=== PATIENT | female | born 1970 | race Caucasian/White ===

== ENCOUNTER → 2017-05-22 | Outpatient (CLI) | payer OTHER ==
--- NOTE | 2017-05-28 16:44 | REPMRS ---
Patient History The patient states she has not had a clinical breast exam in over a year. Family history of breast cancer in mother at age 58. Digital Mammo Screening Bilat: May 22, 2017 - Exam #: [id number] Bilateral CC and MLO view(s) were taken. Technologist: Riri Emerson, Technologist Prior study comparison: 2015, digital bilateral screening mammo, performed at [facility]. December 26, 2014, digital bilateral screening mammo, performed at [facility]. March 10, 2014, digital woman screen mammo, performed at [facility]. November 24, 2012, digital woman screen mammo, performed at [facility]. FINDINGS: There are scattered fibroglandular densities. There is a moderate amount of residual fibroglandular tissue which is fairly symmetric. There is no interval development of dominant mass, architectural distortion, or clustered microcalcification typical of malignancy. There has been no change in the appearance of the mammogram from the prior studies. ASSESSMENT: BI-RADS/ACR category 1 mammogram. Negative. Recommendation Routine screening mammogram of both breasts in 1 year (for women over age 40). This mammogram was interpreted with the aid of an FDA-approved computer-aided dectection system. Electronically Signed By: Greg Dumont MD 05/28/17 [id number]
== END ==
LOC: M RAD 12:43
PROVIDERS: ATTEND Physician Assistant
DX: N60.01 Solitary cyst of right breast (principal); N60.02 Solitary cyst of left breast; Z80.3 Family history of malignant neoplasm of breast

== ENCOUNTER 2018-06-29 14:47 | Observation (INO) | payer OTHER ==
[2018-06-29 15:54] LABS: BASO # 0.1 10^3/uL (0.0-0.2); BASO % 0.7 % (0.0-1.0); EOS # 0.2 10^3/uL (0.0-0.50); EOS % 1.5 % (0.0-3.0); HEMATOCRIT 40.2 % (36.0-47.0); HEMOGLOBIN 14.2 g/dl (12.0-15.5); IMMATURE GRANULOCYTE % 0.3 % (0-3.0); LYMPH % 27.9 % (24.0-44.0); MEAN CORPUSCULAR HEMOGLOBIN 29.9 pg (27.0-33.0); MEAN CORPUSCULAR HGB CONC 35.3 g/dl (32.0-36.5); MEAN CORPUSCULAR VOLUME 84.6 fl (80.0-96.0); MONO # 0.7 10^3/uL (0.0-0.8); MONO % 6.7 % (0.0-5.0); NEUTROPHILS # 6.9 10^3/uL (1.8-7.7); NEUTROPHILS % 62.9 % (36.0-66.0); PLATELET COUNT, AUTOMATED 291 10^3/uL (150-450); RED BLOOD COUNT 4.75 10^6/uL (4.00-5.40); WHITE BLOOD COUNT 10.9 10^3/uL (4.0-10.0)
[2018-06-29 16:17] LABS: ALBUMIN 4.2 GM/DL (3.2-5.2); ALBUMIN/GLOBULIN RATIO 1.31 (1.00-1.93); ALKALINE PHOSPHATASE 68 U/L (45-117); ALT/SGPT 33 U/L (12-78); ANION GAP 12 MEQ/L (8-16); AST/SGOT 26 U/L (7-37); BILIRUBIN,DIRECT < 0.1 MG/DL (0.0-0.2); BILIRUBIN,TOTAL 0.3 MG/DL (0.2-1.0); BLOOD UREA NITROGEN 13 MG/DL (7-18); CALCIUM LEVEL 9.8 MG/DL (8.5-10.1); CARBON DIOXIDE LEVEL 25 MEQ/L (21-32); CHLORIDE LEVEL 104 MEQ/L (98-107); CK-MB VALUE MASS < 1.0 NG/ML (<3.6); CPK CREATINE PHOSPHOKINASE 174 U/L (26-192); CREATININE FOR GFR 0.84 MG/DL (0.55-1.30); ETHYL ALCOHOL (ETHANOL) < 0.003 % (0.000-0.010); GLOMERULAR FILTRATION RATE > 60.0 (>58); GLUCOSE, FASTING 87 MG/DL (70-100); MB/CK RELATIVE INDEX 0.57 (< OR =4); POTASSIUM SERUM 3.9 MEQ/L (3.5-5.1); SODIUM LEVEL 141 MEQ/L (136-145); TOTAL PROTEIN 7.4 GM/DL (6.4-8.2); TROPONIN I < 0.02 NG/ML (< 0.10)
[2018-06-29 17:30] LABS: ABG BASE EXCESS -0.9 (-2.0-2.0); ABG O2 SATURATION 97.2 % (95.0-99.0); ABG PARTIAL PRESSURE CO2 31.8 mmHg (35.0-45.0); ABG PARTIAL PRESSURE O2 88.9 mmHg (75.0-100.0); ABG STANDARD HCO3 23.7 MEQ/L (22.0-26.0); ABG TOTAL CO2 22.9 MEQ/L (22.0-29.0); ABG pH (ARTERIAL) 7.457 UNITS (7.350-7.450)
[2018-06-29 17:51] LABS: CARBOXYHEMOGLOBIN 0.9 % (0.0-1.5)
[2018-06-29 18:03] LABS: AMORPHOUS SEDIMENT RFX SMALL (NEGATIVE); KETONE, URINE AUTO RFX NEGATIVE (NEGATIVE); LEUKOCYTE ESTERASE UR AUTO RFX NEGATIVE (NEGATIVE); MUCUS, URINE RFX SMALL (NEGATIVE); NITRITE, URINE AUTO RFX NEGATIVE (NEGATIVE); RBC, URINE AUTO RFX 0 /HPF (0-3); SPECIFIC GRAVITY UR AUTO RFX 1.006 (1.002-1.035); SQUAM EPITHELIAL CELL UR AURFX 0 /HPF (0-6); WBC, URINE AUTO RFX 1 /HPF (0-3)
[2018-06-29 18:14] LABS: AMPHETAMINES LEVEL URINE NEGATIVE (NEGATIVE); BARBITURATES URINE NEGATIVE (NEGATIVE); BENZODIAZEPINES URINE NEGATIVE (NEGATIVE); CANNABINOIDS URINE NEGATIVE (NEGATIVE); COCAINE METABOLITE URINE NEGATIVE (NEGATIVE); METHADONE URINE NEGATIVE (NEGATIVE); OPIATES URINE NEGATIVE (NEGATIVE); PHENCYCLIDINE URINE NEGATIVE (NEGATIVE)
[2018-06-29 18:18] LABS: AMMONIA 14 uMOL/L (<32)
[2018-06-29 18:28] LABS: LACTIC ACID SEPSIS PROTOCOL 2.3 MMOL/L (0.4-2.0)
[2018-06-29] MEDS: NS 1,000 ML IV ×3 (18:45→23:06)
[2018-06-30] MEDS: AMITRIPTYLINE 50 MG TAB PO ×2 (01:48→20:22)
[2018-06-30] MEDS: IBUPROFEN 400 MG TAB PO ×3 (03:28→19:01)
[2018-06-30 08:10] LABS: CONTROL LINE MONO INT CTR LINE PRESENT; MONO SCRN NEGATIVE (NEGATIVE)
[2018-06-30 08:14] LABS: MAGNESIUM LEVEL 2.2 MG/DL (1.8-2.4); PHOSPHORUS LEVEL 3.1 MG/DL (2.5-4.9)
[2018-06-30] MEDS: ASPIRIN 81 MG ENTERIC TAB PO (09:03)
[2018-06-30] MEDS: ENOXAPARIN 40 MG/0.4 ML SYRINGE (J1650) SC (09:03)
[2018-06-30 09:16] LABS: IMMUNOGLOBULIN E < 3.6 IU/ML (<100)
[2018-06-30 09:28] LABS: ANION GAP 13 MEQ/L (8-16); BLOOD UREA NITROGEN 9 MG/DL (7-18); CARBON DIOXIDE LEVEL 22 MEQ/L (21-32); CHLORIDE LEVEL 108 MEQ/L (98-107); CREATININE FOR GFR 0.83 MG/DL (0.55-1.30); GLOMERULAR FILTRATION RATE > 60.0 (>58); GLUCOSE, FASTING 104 MG/DL (70-100); SODIUM LEVEL 143 MEQ/L (136-145)
[2018-06-30 09:31] LABS: HEMATOCRIT 39.2 % (36.0-47.0); HEMOGLOBIN 13.7 g/dl (12.0-15.5); MEAN CORPUSCULAR HGB CONC 34.9 g/dl (32.0-36.5); MEAN CORPUSCULAR VOLUME 85.8 fl (80.0-96.0); PLATELET COUNT, AUTOMATED 307 10^3/uL (150-450); RED BLOOD COUNT 4.57 10^6/uL (4.00-5.40); WHITE BLOOD COUNT 9.7 10^3/uL (4.0-10.0)
[2018-06-30 10:18] LABS: TOTAL 25(OH) VITAMIN D 45.9 NG/ML (30.0-100.0)
[2018-07-01] MEDS: IBUPROFEN 400 MG TAB PO ×2 (04:20→15:08)
[2018-07-01 07:01] LABS: HEMATOCRIT 38.7 % (36.0-47.0); HEMOGLOBIN 13.4 g/dl (12.0-15.5); MEAN CORPUSCULAR HEMOGLOBIN 29.6 pg (27.0-33.0); MEAN CORPUSCULAR HGB CONC 34.6 g/dl (32.0-36.5); MEAN CORPUSCULAR VOLUME 85.4 fl (80.0-96.0); PLATELET COUNT, AUTOMATED 282 10^3/uL (150-450); RED BLOOD COUNT 4.53 10^6/uL (4.00-5.40); WHITE BLOOD COUNT 9.3 10^3/uL (4.0-10.0)
[2018-07-01 07:21] LABS: ANION GAP 6 MEQ/L (8-16); BLOOD UREA NITROGEN 13 MG/DL (7-18); CALCIUM LEVEL 8.6 MG/DL (8.5-10.1); CARBON DIOXIDE LEVEL 26 MEQ/L (21-32); CHLORIDE LEVEL 108 MEQ/L (98-107); CREATININE FOR GFR 0.89 MG/DL (0.55-1.30); GLOMERULAR FILTRATION RATE > 60.0 (>58); GLUCOSE, FASTING 94 MG/DL (70-100); POTASSIUM SERUM 4.2 MEQ/L (3.5-5.1); SODIUM LEVEL 140 MEQ/L (136-145)
[2018-07-01] MEDS: ENOXAPARIN 40 MG/0.4 ML SYRINGE (J1650) SC (09:15)
[2018-07-01] MEDS: ASPIRIN 81 MG ENTERIC TAB PO (09:16)
[2018-07-01 09:50] LABS: CHOLESTEROL LEVEL 250 MG/DL (<200); CHOLESTEROL RISK RATIO 5.681 (<5); HDL CHOLESTEROL 44 MG/DL (>40); LDL CHOLESTEROL 173 MG/DL (<100); NON-HDL-C 206 MG/DL; TRIGLYCERIDES LEVEL 167 MG/DL (<150)
[2018-07-01] MEDS: amLODIPine 10 MG TAB PO (12:03)
[2018-07-01 14:17] LABS: BEDSIDE GLUCOSE 91 MG/DL (70-105)
[2018-07-02 00:07] LABS: Lyme Disease IgG/IgM Antibodie <0.91 ISR (0.00-0.90); Lyme Disease IgM Ab Quantitati <0.80 index (0.00-0.79)
== END 2018-07-01 15:15 | disposition home or self-care (01) ==
LOC: M ED INP 14:48 → M PED 06-30 02:55 → M ED 14:47
DX: G45.4 Transient global amnesia (principal); G43.909 Migraine, unspecified, not intractable, without status migrainosus; E78.5 Hyperlipidemia, unspecified; I66.9 Occlusion and stenosis of unspecified cerebral artery; I10 Essential (primary) hypertension; R07.89 Other chest pain; D72.829 Elevated white blood cell count, unspecified; K57.90 Diverticulosis of intestine, part unspecified, without perforation or abscess without bleeding; G47.00 Insomnia, unspecified; Z87.09 Personal history of other diseases of the respiratory system; Z88.6 Allergy status to analgesic agent; Z88.5 Allergy status to narcotic agent; Z88.2 Allergy status to sulfonamides; Z79.899 Other long term (current) drug therapy; Z79.82 Long term (current) use of aspirin; Z79.1 Long term (current) use of non-steroidal anti-inflammatories (NSAID)
CPT/HCPCS: J1650

== ENCOUNTER → 2018-07-22 | Outpatient (CLI) | payer OTHER ==
[~2018-07-22] MED LIST: METHACHOLINE KIT (J7674) INH
== END ==
LOC: M CARPUL 07:30
DX: R06.02 Shortness of breath (principal); R07.89 Other chest pain
CPT/HCPCS: J7674

== ENCOUNTER → 2018-12-27 | Outpatient (CLI) | payer OTHER ==
[~2018-12-27] MED LIST changes: +ALEV220T26 PO; +AMIT50TA PO; +AMLO10TA5 PO; +ARTI99.0 OU; +ASPI81TAEC PO; +FISH1000 PO; +MAGN250T6 PO; -METHACHOLINE KIT (J7674) INH; +RANI1TAB6 PO; +VENTAER INH; +VITA100T56 PO; +VITA50005 PO; +VITA500T PO
== END ==
LOC: M LAB 14:17
PROVIDERS: ATTEND Physician Assistant Medical
DX: Z11.59 Encounter for screening for other viral diseases (principal)

== ENCOUNTER → 2019-02-11 | Outpatient (CLI) | payer OTHER ==
--- NOTE | 2019-02-11 09:08 | REPMRS ---
Patient History The patient states she has not had a clinical breast exam in over a year. Family history of breast cancer at age 58 in mother. [facility] for breast cancer is 16.[facility]%. Digital Woman Screen Mammo: February 11, 2019 - Exam #: [id number] Bilateral CC and MLO view(s) were taken. Technologist: Lexie Lipscomb, Technologist Prior study comparison: May 22, 2017, bilateral digital mammo screening bilat, performed at [facility]. 2016, digital bilateral screening mammo, performed at [facility]. FINDINGS: The breast tissue is heterogeneously dense. This may lower the sensitivity of mammography. There has been no change in the appearance of the mammogram from the prior studies. There is a moderate amount of residual fibroglandular tissue which is fairly symmetric. There is no interval development of dominant mass, areas of architectural distortion, or clustered microcalcification typical of malignancy. Assessment: BI-RADS/ACR category 1 mammogram. Negative Mammogram. Recommendation Routine screening mammogram in 1 year (for women over age 40). This mammogram was interpreted with the aid of an FDA-approved computer-aided dectection system. Electronically Signed By: Elijah Jean MD 02/11/19 0907
== END ==
LOC: M WHC 07:31
PROVIDERS: ATTEND Family Medicine
DX: Z12.31 Encounter for screening mammogram for malignant neoplasm of breast (principal); Z80.3 Family history of malignant neoplasm of breast

== ENCOUNTER → 2020-03-09 | Outpatient (CLI) | payer OTHER ==
[~2020-03-09] MED LIST changes: -AMLO10TA5 PO; +AMLO1TAB25 PO; -ARTI99.0 OU; +POLYOPD OU; +RANI-397 PO; -RANI1TAB6 PO; +VITA-243 PO; -VITA500T PO
--- NOTE | 2020-03-09 09:26 | REPMRS ---
Patient History The patient states she has not had a clinical breast exam in over a year. Family history of breast cancer at age 58 in mother. 3D TOMOSYNTHESIS WAS PERFORMED. The Luis Choi lifetime risk for breast cancer is 15.7%. VOLPARA DENSITY B. Digital Woman Screen Mammo: March 09, 2020 - Exam #: [id number] Bilateral CC and MLO view(s) were taken. Technologist: Apurva Ely, Technologist Prior study comparison: February 11, 2019, bilateral digital woman screen mammo performed at [facility]. May 22, 2017, bilateral digital mammo screening bilat, performed at [facility]. FINDINGS: The breast tissue is heterogeneously dense. This may lower the sensitivity of mammography. There has been no change in the appearance of the mammogram from the prior studies. There is a moderate amount of residual fibroglandular tissue which is fairly symmetric. There is no interval development of dominant mass, areas of architectural distortion, or clustered microcalcification typical of malignancy. Assessment: BI-RADS/ACR category 1 mammogram. Negative Mammogram. Recommendation Routine screening mammogram in 1 year (for women over age 40). This mammogram was interpreted with the aid of an FDA-approved computer-aided dectection system. Electronically Signed By: Elijah Jean MD 03/09/20 0949
== END ==
LOC: M WHC 07:45
PROVIDERS: ATTEND Nurse Practitioner Primary Care
DX: Z12.31 Encounter for screening mammogram for malignant neoplasm of breast (principal); Z80.3 Family history of malignant neoplasm of breast

== ENCOUNTER 2021-01-03 09:48 | Day surgery (SDC) | payer OTHER ==
[~2021-01-03] VITALS: Ht 170.2 cm; Wt 102.1 kg
[~2021-01-03 09:48] MED LIST changes: +ASPI-569 PO; -ASPI81TAEC PO; +CRES10TA PO; +D3 S20002 PO; +LOSA50TA88 PO; +NS 1,000 ML IV ONE; +VENL75CA2 PO
[2021-01-03] MEDS ORDERED: propofoL 200 MG/20 ML VIAL As Ordered ONE ×2 (11:13→11:28)
--- NOTE | 2021-01-03 11:48 | ROOR ---
Patient Name: Anne Andrews Procedure Date: 01/03/2021 11:10 AM Date of : 1970 Age: 50 Room: [facility] Gender: Female Note Status: Finalized Procedure: Colonoscopy Indications: Generalized abdominal pain, Change in bowel habits, Constipation Providers: Mark Nuñez MD Referring MD: KAROLINA TURCIOS MD Requesting Provider: Medicines: Monitored Anesthesia Care Complications: No immediate complications. Procedure: Pre-Anesthesia Assessment: - The heart rate, respiratory rate, oxygen saturations, blood pressure, adequacy of pulmonary ventilation, and response to care were monitored throughout the procedure. The Colonoscope was introduced through the anus and advanced to 10 cm into the ileum. The colonoscopy was performed without difficulty. The patient tolerated the procedure well. The quality of the bowel preparation was good. Findings: The perianal and digital rectal examinations were normal. Mild sigmoid diverticulosis and small internal hemorrhoids. Retroflexion in the right colon was performed. The exam was otherwise normal throughout the examined colon. The terminal ileum appeared normal. Impression: - Mild sigmoid diverticulosis and small internal hemorrhoids. - The colon is otherwise normal. - The examined portion of the ileum was normal. - No specimens collected. - (Irritable Bowel Syndrome/IBS suspected.) Recommendation: - Continue present medications. Procedure Code(s): --- Professional --- 74835, Colonoscopy, flexible; diagnostic, including collection of specimen(s) by brushing or washing, when performed (separate procedure) Diagnosis Code(s): --- Professional --- K59.00, Constipation, unspecified R19.4, Change in bowel habit R10.84, Generalized abdominal pain CPT copyright 2019 [employer]. All rights reserved. The codes documented in this report are preliminary and upon relationship executive review may be revised to meet current compliance requirements. Mark Nuñez MD Mark Nuñez MD 01/03/2021 11:47:42 AM Electronically signed by Mark Nuñez MD Number of Addenda: 0 Note Initiated On: 01/03/2021 11:10 AM Estimated Blood Loss: Estimated blood loss: none.
[2021-01-03 12:05] VITALS: BP 123/85
== END 2021-01-03 12:14 | disposition home or self-care (01) ==
LOC: M OPP 09:48
PROVIDERS: ATTEND Internal Medicine Gastroenterology
DX: R10.84 Generalized abdominal pain (principal); R19.4 Change in bowel habit; K57.30 Diverticulosis of large intestine without perforation or abscess without bleeding; K64.8 Other hemorrhoids; I10 Essential (primary) hypertension; E78.5 Hyperlipidemia, unspecified; K21.9 Gastro-esophageal reflux disease without esophagitis; F41.9 Anxiety disorder, unspecified; G43.909 Migraine, unspecified, not intractable, without status migrainosus; Z88.2 Allergy status to sulfonamides; Z88.5 Allergy status to narcotic agent; Z88.6 Allergy status to analgesic agent; Z79.899 Other long term (current) drug therapy; Z80.3 Family history of malignant neoplasm of breast; Z80.8 Family history of malignant neoplasm of other organs or systems

== ENCOUNTER 2021-04-25 17:07 | Emergency (ER) | payer OTHER ==
[~2021-04-25] VITALS: Ht 177.8 cm; Wt 89.5 kg
[~2021-04-25 17:07] MED LIST changes: -NS 1,000 ML IV ONE
[2021-04-25] MEDS ORDERED: GABA-282 (17:38)
[2021-04-25] MEDS ORDERED: NS 1,000 ML IV ONE (20:40)
[2021-04-25] MEDS ORDERED: KETOROLAC 30 MG/ML 1ML VIAL IV ONE (20:40)
--- NOTE | 2021-04-25 21:01 | REPVR ---
PROCEDURE INFORMATION: Exam: XR Chest Exam date and time: 04/25/2021 8:49 PM Age: 50 years old Clinical indication: Condition or disease; Other: Coronavirus workup TECHNIQUE: Imaging protocol: XR of the chest. Views: 1 view. COMPARISON: CR Chest, 2 view PA, Lat 06/29/2018 4:23 PM FINDINGS: Lungs: Unremarkable. No consolidation. Pleural spaces: Unremarkable. No pleural effusion. No pneumothorax. Heart/Mediastinum: Unremarkable. No cardiomegaly. Bones/joints: Status post lower cervical interbody fusion. IMPRESSION: No acute findings. Electronically signed by: Musa Brody On 04/25/2021 21:01:15 PM
[2021-04-25] MEDS ORDERED: PROAAER10 INH (21:12)
[2021-04-25] MEDS ORDERED: CAPS0.022 TOP (21:12)
[2021-04-25] MEDS ORDERED: LIDO5OIN19 EXT (21:12)
[2021-04-25] MEDS ORDERED: CAPS42.54 EX (21:12)
[2021-04-25] MEDS ORDERED: VITA100024 PO (21:12)
[2021-04-25] MEDS ORDERED: DICL20GE TOP (21:19)
[2021-04-25] MEDS ORDERED: MIRA1POW3 PO (21:19)
[2021-04-25] MEDS ORDERED: TIZA1TAB12 PO (21:19)
[2021-04-25] MEDS ORDERED: LOSA50TA88 PO (21:19)
[2021-04-25] MEDS ORDERED: ASPI-161 PO (21:19)
[2021-04-25] MEDS ORDERED: CRES10TA PO (21:19)
[2021-04-25] MEDS ORDERED: ALEV220T22 PO (21:19)
[2021-04-25] MEDS ORDERED: K 10100T PO (21:23)
[2021-04-25] MEDS ORDERED: IBUP1TAB7 PO (21:23)
[2021-04-25] MEDS ORDERED: MAGN400T3 PO (21:23)
[2021-04-25] MEDS ORDERED: D3 H2000 PO (21:23)
[2021-04-25] MEDS ORDERED: HOME MED LIST COMPLETE! XX SCH (21:35)
[2021-04-25 22:05] LABS: BASO # 0.1 10^3/uL (0.0-0.2); BASO % 0.8 % (0.0-1.0); EOS # 0.2 10^3/uL (0.0-0.5); EOS % 1.9 % (0.0-3.0); HEMATOCRIT 43.2 % (36.0-47.0); HEMOGLOBIN 14.6 g/dl (12.0-15.5); LYMPH # 3.9 10^3/uL (1.5-5.0); LYMPH % 38.4 % (24.0-44.0); MEAN CORPUSCULAR HEMOGLOBIN 29.3 pg (27.0-33.0); MEAN CORPUSCULAR HGB CONC 33.8 g/dl (32.0-36.5); MEAN CORPUSCULAR VOLUME 86.6 fl (80.0-96.0); MONO # 0.9 10^3/uL (0.0-0.8); MONO % 8.6 % (2.0-8.0); NEUTROPHILS # 5.1 10^3/uL (1.5-8.5); NEUTROPHILS % 50.1 % (36.0-66.0); PLATELET COUNT, AUTOMATED 289 10^3/uL (150-450); RED BLOOD COUNT 4.99 10^6/uL (4.00-5.40); WHITE BLOOD COUNT 10.2 10^3/uL (4.0-10.0)
[2021-04-25 22:32] LABS: CK-MB VALUE MASS < 1.0 NG/ML (<3.6); CPK CREATINE PHOSPHOKINASE 247 U/L (26-192); LDH LACTATE DEHYDROGENASE 707 U/L (84-246); TROPONIN I < 0.02 NG/ML (< 0.10)
[2021-04-25] MEDS ORDERED: ONDANSETRON 4MG/2ML VIAL IV ONE (23:05)
--- NOTE | 2021-04-25 23:59 | HPEPDOC ---
[facility] Medical History & Physical Date of Admission Apr 25, 2021 Date of Service: Apr 25, 2021 Attending Physician: ANGELICA BERNAL DO History and Physical CHIEF COMPLAINT: [50 y/o female c/o malaise, sob, recently diagnosed covid+] HISTORY OF PRESENT ILLNESS: [This is a 50 y/o female with a pmh of htn, hld and chronic pain who reports to our ED on 04/25 with complaints of increasing malaise, headache and sob for approx 3-4 days. Patient was recently diagnosed with covid at an outpatient center. Patient tells me that she is normally very in tune with her body but simply feels like shes 'been hit by a mac truck" and has trouble putting her symptoms into words. Patient tells me that she has sob but n o chest pain or cough. Patient denies any associated abd pain, n/v/d/c, pedal edema, hemoptysis, calf pain, syncope, paresthesias] PAST MEDICAL HISTORY: 1. [See HPI PAST SURGICAL HISTORY: 1. [Tonsillectomy]. 2. [Endometrial ablation]. 3. [Left knee x2 4. Right wrist x2]. SOCIAL HISTORY: Tobacco use:[Denies] ETOH: [Denies] Illicit drug use: [Denies] FAMILY HISTORY: Father - copd ALLERGIES: Please see below. REVIEW OF SYSTEMS: CONSTITUTIONAL: [Admits to malaise, fever, fatigue]. HEENT: [Admits to headache]. CARDIOVASCULAR: [Denies chest pain, palpitations]. RESPIRATORY: [Admits to sob. Denies cough]. GASTROINTESTINAL: [Denies abd pain, n/v/d/c]. GENITOURINARY: [Denies dysuria]. SKIN: [Denies chest pain]. MUSCULOSKELETAL: [Denies acute joint/back pain]. NEUROLOGICAL: [Denies syncope, paresthesias]. ENDOCRINE: [Denies hx of DM]. HEMATOLOGIC/LYMPHATIC: [Denies hx of vte]. HOME MEDICATIONS: Please see below. PHYSICAL EXAMINATION: VITAL SIGNS: Please see below. GENERAL APPEARANCE: [Acutely ill appearing 50 y/o female who is alert and oriented to all questioning. She does not appear to be in any acute distress.]. HEENT: [No mass or lesion. EOMI. No scleral icterus. Nares patent. Oral mucosa moist]. CARDIOVASCULAR: [Regular rate, rhythm.]. LUNGS: [Good air flow b/l]. ABDOMEN: [Soft, nontender]. MUSCULOSKELETAL: [No joint deformity]. EXTREMITIES: [No pedal edema appreciated. No overlying skin changes]. NEUROLOGICAL: [Speech clear. A+Ox3. No focal deficits]. PSYCHIATRIC: [Mood and affect appear appropriate.]. LABORATORY DATA: See below. IMAGING: [CXR: FINDINGS: Lungs: Unremarkable. No consolidation. Pleural spaces: Unremarkable. No pleural effusion. No pneumothorax. Heart/Mediastinum: Unremarkable. No cardiomegaly. Bones/joints: Status post lower cervical interbody fusion. IMPRESSION: No acute findings. ] MICROBIOLOGY: Please see below. ASSESSMENT: [This is a 50 y/o female with a pmh of htn, hld and chronic pain who reports to our ED on 04/25 with complaints of increasing malaise, headache and sob for approx 3-4 days. Patient was recently diagnosed with covid at an outpatient center.]. . PLAN: 1. [COVID - patient not currently meeting admission criteria - no hypoxia, cxr findings - will give outpatient monoclonal antibody infusion casirivimab/imdevimab - will order meds on standby for possible reaction - risks and benefits of monoclonal antibody infusion discussed with patient - consent form to be signed prior to infusion - regular diet - patient may be discharged after observation period post infusion if no issues arise]. Vital Signs Vital Signs Date Time Temp Pulse Resp B/P (MAP) Pulse Ox O2 Delivery O2 Flow Rate FiO2 04/25/21 21:54 Room Air 04/25/21 17:07 98.2 79 18 155/91 (112) 98 Laboratory Data Labs 24H Laboratory Tests 2 04/25/21 21:40: Immature Granulocyte % (Auto) 0.2, Neutrophils (%) (Auto) 50.1, Lymphocytes (%) (Auto) 38.4, Monocytes (%) (Auto) 8.6H, Eosinophils (%) (Auto) 1.9, Basophils (% ) (Auto) 0.8, Neutrophils # (Auto) 5.1, Lymphocytes # (Auto) 3.9, Monocytes # (Auto) 0.9H, Eosinophils # (Auto) 0.2, Basophils # (Auto) 0.1, Nucleated Red Blood Cells % (auto) 0.0, D-Dimer, Quantitative 337.37, Lactic Acid Level 1.5, Lactate Dehydrogenase 707H, Total Creatine Kinase 247H, Creatine Kinase MB < 1.0, Creatine Kinase MB Relative Index 0.40, Troponin I < 0.02, C-Reactive Protein, Quantitative 0.30 CBC/BMP Laboratory Tests 04/25/21 21:40 Home Medications Scheduled Ascorbic Acid (Vitamin C) 1,000 Mg Tablet, 1,000 MG PO DAILY Aspirin (Aspirin EC) 81 Mg Tablet.dr, 81 MG PO DAILY Cholecalciferol (Vitamin D3) (Vitamin D3) 50 Mcg Capsule, 50 MCG PO DAILY Losartan Potassium (Losartan Potassium) 50 Mg Tablet, 50 MG PO DAILY Magnesium Oxide (Magnesium Oxide) 400 Mg Tablet, 400 MG PO BID Naproxen Sodium (Aleve) 220 Mg Tablet, 220 MG PO BID Phytonadione (Vit K1) (Vitamin K) 100 Mcg Tablet, 100 MCG PO QHS Rosuvastatin Calcium (Crestor) 10 Mg Tablet, 10 MG PO QHS Tizanidine HCl (Tizanidine HCl) 2 Mg Tablet, 4 MG PO QHS Scheduled PRN Albuterol Sulfate (Proair Hfa) 8.5 Gm Hfa.aer.ad, 2 PUFF INH Q4H PRN for SHORTNESS OF BREATH Capsaicin (Capsaicin) 0.025% Cream..g., 1 DOSE TOP BID PRN for MILD PAIN (PS 1- 4) Diclofenac Sodium (Voltaren Arthritis Pain) 1 % Gel..gram., 1 DOSE TOP QID PRN f or BACK PAIN Ibuprofen (Ibuprofen) 800 Mg Tablet, 800 MG PO TID PRN for MODERATE PAIN (PS 5- 7) Lidocaine (Lidocaine) 120 Gm Oint...g., 1 DOSE EXT QID PRN for MODERATE PAIN (PS 5-7) Polyethylene Glycol 3350 (Miralax) 17 Gm Powd.pack, 17 GM PO DAILY PRN for CONSTIPATION Allergies Coded Allergies: acetaminophen (Verified Allergy, Unknown, FACIAL ITCHING, 12/27/20) oxycodone (Verified Allergy, Unknown, FACIAL ITCHING, 12/27/20) Sulfa (Sulfonamide Antibiotics) (Verified Adverse Reaction, Unknown, GI UPSET, 12/27/20) A-FIB/CHADSVASC A-FIB History Current/History of A-Fib/PAF?: No TITO MADRIGAL 2, 2021 23:59
[2021-04-26] MEDS ORDERED: NS 1,000 ML IV SCH
[2021-04-26] MEDS ORDERED: ALBUTEROL 90 MCG/ACT 8GM HFA INHALER INH PRN
[2021-04-26] MEDS ORDERED: methylPREDNISolone 125MG 2ML VIAL IV PRN
[2021-04-26] MEDS ORDERED: ALBUTEROL SULFATE 2.5 MG/0.5 ML INH NEB SOLN INH PRN
[2021-04-26] MEDS ORDERED: CASIRIVIMAB/IMDEVIMAB 1,200 MG in NS 250 ML IV ONE ×2
[2021-04-26] MEDS ORDERED: EPINEPHrine INJ 1 MG/ML 1ML AMP IM PRN
[2021-04-26] MEDS ORDERED: diphenhydrAMINE 50MG/ML VIAL (J1200) IV PRN
[2021-04-26 00:30] VITALS: BP 139/83
--- NOTE | 2021-04-26 11:41 | ECGEPIP ---
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
== END 2021-04-26 00:45 | disposition home or self-care (01) ==
LOC: M ED 17:07
DX: U07.1 COVID-19 (principal); I10 Essential (primary) hypertension; E78.5 Hyperlipidemia, unspecified; Z79.82 Long term (current) use of aspirin; Z79.899 Other long term (current) drug therapy; Z88.2 Allergy status to sulfonamides; Z88.8 Allergy status to other drugs, medicaments and biological substances; Z88.5 Allergy status to narcotic agent
CPT/HCPCS: 71045; 82550; 82553; 83605; 83615; 84484; 85025; 85379; 86140; 93005; 93041; 94760; 96361; 96374; 96375; 99285; J1885; J2405

== ENCOUNTER 2021-04-26 00:57 | Outpatient (CLI) | payer OTHER ==
[2021-04-26] VITALS (8 sets, daily range): BP systolic 116–144; BP diastolic 64–78
[~2021-04-26 00:57] MED LIST changes: +ALEV220T22 PO; +ASPI-161 PO; +CAPS0.022 TOP; +CAPS42.54 EX; +D3 H2000 PO; +DICL20GE TOP; +GABA-282; +IBUP1TAB7 PO; +K 10100T PO; +LIDO5OIN19 EXT; +MAGN400T3 PO; +MIRA1POW3 PO; +PROAAER10 INH; +TIZA1TAB12 PO; +VITA100024 PO
[2021-04-26] MEDS ORDERED: methylPREDNISolone 125MG 2ML VIAL IV PRN (01:20)
[2021-04-26] MEDS ORDERED: diphenhydrAMINE 50MG/ML VIAL (J1200) IV PRN (01:20)
[2021-04-26] MEDS ORDERED: EPINEPHrine INJ 1 MG/ML 1ML AMP IM PRN (01:20)
[2021-04-26] MEDS ORDERED: ALBUTEROL 90 MCG/ACT 8GM HFA INHALER INH PRN (01:20)
[2021-04-26] MEDS ORDERED: NS 1,000 ML IV SCH (01:20)
[2021-04-26] MEDS ORDERED: ALBUTEROL SULFATE 2.5 MG/0.5 ML INH NEB SOLN INH PRN (01:20)
[2021-04-26] MEDS ORDERED: CASIRIVIMAB/IMDEVIMAB 1,200 MG in NS 250 ML IV ONE (01:30)
== END 2021-04-26 04:27 | disposition home or self-care (01) ==
LOC: M OPCLIICU 00:57 → M ICU 01:00 → M OPCLIICU 04:27
PROVIDERS: ATTEND Internal Medicine
DX: U07.1 COVID-19 (principal); Z88.2 Allergy status to sulfonamides; Z88.6 Allergy status to analgesic agent

== ENCOUNTER → 2021-05-01 | Outpatient (CLI) | payer OTHER ==
--- NOTE | 2021-05-01 09:55 | REP ---
INDICATION: DON SCR MAMMO Z12.31. COMPARISON: Multiple with the only prior DBT exam of 03/09/2020 TECHNIQUE: Digital screening mammography was cardio bilaterally in the CC and MLO projections using both 2D and 3D modalities and compared to the prior exams. By history, the patient has no complaints of a palpable breast abnormality or other significant breast complaints. FINDINGS: The breasts are unchanged in size and shape. Once again, scattered dense heterogenous fibroglandular elements are seen bilaterally. In the right breast in the central retroareolar region there is a rebeca density. No other suspicious features are seen in either breast. There is no internal architectural distortion. There are no suspicious calcifications. Stable benign calcifications are again noted. The Volpara volumetric breast density pattern is b. IMPRESSION: BIRADS/ACR category 0 mammogram. There is a rebeca density seen in the central retroareolar region of the right breast and for which diagnostic digital DBT spot compression views are recommended in the CC and MLO projections along with ultrasonography if necessary. This patient's Tyrer-Cuzick lifetime breast cancer risk assessment score is 15.5%. This mammogram was interpreted with the aid of an FDA-approved computer-aided detection system. The patient states she had a clinical breast exam in May 01, 2021. The patient letter being requested is M0. RECOMMENDATION: As above <Electronically signed by Manuel Santiago > 05/01/21 [id number]
== END ==
LOC: M WHC 07:51
PROVIDERS: ATTEND Nurse Practitioner Women's Health
DX: Z12.31 Encounter for screening mammogram for malignant neoplasm of breast (principal)

== ENCOUNTER → 2021-05-01 | Outpatient (REF) | payer OTHER | LOC: M SFHCWAGY 12:59 | PROVIDERS: ATTEND Nurse Practitioner Women's Health | DX: Z01.419 Encounter for gynecological examination (general) (routine) without abnormal findings (principal); Z12.4 Encounter for screening for malignant neoplasm of cervix | CPT/HCPCS: 77063; 77067; 87624; G0123; G0463 ==

== ENCOUNTER → 2021-05-09 | Outpatient (CLI) | payer OTHER ==
--- NOTE | 2021-05-09 16:17 | REP ---
INDICATION: ADDL VIEWS R BREAST/KG DENSITY. COMPARISON: Multiple TECHNIQUE: Diagnostic digital DBT images of the right breast were obtained in the CC and MLO projections over the region of interest seen on the prior screening examination of 05/01/2021. Additionally, diagnostic ultrasonography of that same region was obtained. FINDINGS: The small nodular density seen centrally in the right breast in both CC and MLO projections on the screening examination persists on the diagnostic digital DBT images in both CC and MLO projections. Diagnostic ultrasonography of this area shows a solid nodule which measures approximately 4 mm. Shear wave elastography was performed on this showing mid range kPa values. IMPRESSION: BIRADS/ACR category 4 mammogram. There is a kg density seen in the right breast both mammographically and ultrasonographically. Biopsy is recommended. The patient letter being requested is M4. RECOMMENDATION: As above <Electronically signed by Manuel Santiago > 05/09/21 [id number]
== END ==
LOC: M WHC 13:14
PROVIDERS: ATTEND Nurse Practitioner Women's Health
DX: Z12.31 Encounter for screening mammogram for malignant neoplasm of breast (principal); N64.89 Other specified disorders of breast
CPT/HCPCS: 76642; 77065; G0279

== ENCOUNTER → 2021-06-06 | Outpatient (CLI) | payer OTHER ==
[2021-06-06 16:31] VITALS: BP 128/86
--- NOTE | 2021-06-06 17:04 | REP ---
INDICATION: U/S GUIDED BX ABNORMAL MAMMO R POST CLIP MAMMO. COMPARISON: Mammogram 05/01/2021. Mammogram and ultrasound 05/09/2021. TECHNIQUE: ML and CC views right breast performed following ultrasound-guided biopsy of 2 separate lesions in the region of 9 o'clock. FINDINGS: 2 HydroMARK clips are visualized in the outer right breast. The larger lesion that was biopsied measures 9 x 5 mm by ultrasound, corresponding to the size of the nodule seen on the mammogram. The marking clip is deployed slightly anterior and superior to the nodule following the biopsy. The clip for the smaller nodule is deployed further superiorly and laterally. IMPRESSION: Ultrasound-guided biopsy of 2 hypoechoic lesions in the outer right breast. RECOMMENDATION: Follow-up mammogram in 6 months. <Electronically signed by Elijah Jean > 06/06/21 [id number]
--- NOTE | 2021-06-06 17:28 | REP ---
INDICATION: U/S GUIDED BX ABNORMAL MAMMO OF RIGHT POST MAMMO W CLIP PLAC. COMPARISON: None. TECHNIQUE: The procedure was performed by MELINA Domingo, under the direct supervision of Dr. Jean. The risks and benefits of the procedure were explained to the patient and an informed consent was obtained both verbally and written. Directly prior to the start of the procedure a formal time-out was completed in the procedure room. FINDINGS: The right breast mass #1 was localized using ultrasound guidance.. The skin was prepped and draped in a sterile fashion. Twelve mL of lidocaine was used as a local anesthetic. Using ultrasound guidance a 10 gauge mammotome needle biopsy system was inserted and advanced into the right breast area of interest 1. 6. Core biopsy specimens were obtained. A marker clip was placed at the biopsy site. The right breast mass #2 was localized using ultrasound guidance.. The skin was prepped and draped in a sterile fashion. Fifteen mL of lidocaine was used as a local anesthetic. Using ultrasound guidance a 10 gauge mammotome needle biopsy system was inserted and advanced into the right breast area of interest 2. 8. Core biopsy specimens were obtained. A marker clip was placed at the biopsy site. The patient tolerated the procedure well and there were no immediate complications. After the appropriate amount of monitored convalescence the patient was discharged from the department. IMPRESSION: Ultrasound-guided biopsy and micro clip placement of right breast x2. <Electronically signed by Ericka Lomax > 06/06/21 1702 <Electronically signed by Elijah Jean > 06/06/21 [id number]
== END ==
LOC: M WHCPRO 14:00
PROVIDERS: ATTEND Surgery
DX: D24.1 Benign neoplasm of right breast (principal)

== ENCOUNTER → 2021-07-11 | Outpatient (CLI) | payer OTHER ==
[~2021-07-11] MED LIST changes: -MAGN400T3 PO; +MAGN400T33 PO
--- NOTE | 2021-07-11 09:33 | REP ---
INDICATION: 1 MON POST BX FOR CLIP PLACEMENT OF 12MM MASS. COMPARISON: Right unilateral diagnostic mammogram, 06/06/2021. TECHNIQUE: 2D and 3D cc and MLO views of the right breast were obtained. FINDINGS: There are 2 biopsy clips noted in the right breast. The clips are unchanged in position compared with the prior exam. There has been interval decrease in the amount of architectural distortion and trabecular thickening at the biopsy sites, compared with the prior exam, consistent with post biopsy healing. The Volpara volumetric breast density pattern is a, the breasts are almost entirely fatty.. IMPRESSION: BIRADS/ACR : Category 2: Benign finding. The patient letter being requested is M2. RECOMMENDATION: Follow-up screening mammography recommended 1 year (for women over 40). <Electronically signed by Mark Christianson > 07/11/21 0972
== END ==
LOC: M WHC 08:24
PROVIDERS: ATTEND Surgery
DX: R92.8 Other abnormal and inconclusive findings on diagnostic imaging of breast (principal)
CPT/HCPCS: 77065; G0279

== ENCOUNTER → 2021-11-11 | Outpatient (CLI) | payer OTHER ==
[~2021-11-11] MED LIST changes: +LOSA50TA28 PO; -LOSA50TA88 PO; +PROHANCE 279.3MG/ML 15ML VIAL ONE; +PROHANCE 279.3MG/ML 5ML VIAL ONE
== END ==
LOC: M PLAIMG 11:53
PROVIDERS: ATTEND Surgery
DX: Z91.89 Other specified personal risk factors, not elsewhere classified (principal)

== ENCOUNTER → 2021-12-13 | Outpatient (CLI) | payer OTHER ==
[~2021-12-13] MED LIST changes: -PROHANCE 279.3MG/ML 15ML VIAL ONE; -PROHANCE 279.3MG/ML 5ML VIAL ONE
== END ==
LOC: M WHC 07:34
PROVIDERS: ATTEND Surgery
DX: R92.8 Other abnormal and inconclusive findings on diagnostic imaging of breast (principal)
CPT/HCPCS: 76642; 77065; G0279

== ENCOUNTER → 2024-09-20 | Outpatient (CLI) | payer OTHER ==
[~2024-09-20] MED LIST changes: +ARTIDRO4 OU; -ASPI-161 PO; +ASPI-615 PO; +GABA-1172; -GABA-282; -MIRA1POW3 PO; +MIRA33506 PO; -POLYOPD OU
== END ==
LOC: M WHC 15:22
PROVIDERS: ATTEND Physician Assistant Medical
DX: Z12.31 Encounter for screening mammogram for malignant neoplasm of breast (principal); N63.25 Unspecified lump in the left breast, overlapping quadrants; R92.323 Mammographic fibroglandular density, bilateral breasts

== ENCOUNTER → 2024-10-03 | Outpatient (CLI) | payer OTHER | LOC: M WHC 11:04 | PROVIDERS: ATTEND Physician Assistant Medical | DX: R92.2 Inconclusive mammogram (principal) | CPT/HCPCS: 77065; G0279 ==